=== PATIENT | female | born 1980 | race Caucasian/White ===

== ENCOUNTER → 2019-12-07 09:13 | Outpatient (CLI) | payer OTHER, SELFPAY ==
--- NOTE | ~2019-12-07 | MMUS_ITS ---
EXAMINATION: MM diag dhruv implant BI w angely, US breast LT limited HISTORY: Lump in left axillary tail area TECHNIQUE: ML, MLO and cc 3-D tomosynthesis implant displaced images and implant views of both breast s were performed and synthetic 2-D images were generated. CAD analysis was submitted and interpreted. High resolution targeted left axillary tail and axillary breast ultrasound was performed. COMPARISON: None BREAST PARENCHYMAL COMPOSITION: The breasts are heterogeneously dense, which may obscure small masses . FINDINGS: MAMMOGRAPHIC FINDINGS: No suspicious mass or architectural distortion, malignant calcification, skin thickening or retractio n is detected. ULTRASOUND: There is a 1.0 x 0.7 x 0.7 mm benign-appearing lymph node at the area of clinical complaint in the 1: 00 area 9 cm from the nipple. No suspicious mass or shadowing is evident. IMPRESSION: 1. No mammographic evidence of malignancy 2. Routine mammographic screening is recommended. BI-RADS Category 2: Benign finding(s). Reviewed, dictated and finalized at location A. 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 No mammographic evidence of malignancy 2. Routine mammographic screening is recommended. BI-RADS Category 2: Benign finding(s).
== END ==
PROVIDERS: Visit Provider Advanced Practice Midwife
DX: N63.32 Unspecified lump in axillary tail of the left breast (principal)
CPT/HCPCS: 76642; 77062; 77066; G0279

== ENCOUNTER → 2021-05-21 12:10 | Outpatient (CLI) | payer OTHER, SELFPAY ==
--- NOTE | ~2021-05-21 | MM_ITS ---
EXAMINATION: MM scrn dhruv implant BI w angely HISTORY: Screening mammogram TECHNIQUE: Craniocaudal and mediolateral oblique 3-D tomosynthesis images with implant displacement a nd synthetic 2-D images were generated. Craniocaudal and mediolateral oblique views of the breasts wi thout implant displacement were obtained using full field digital mammography. CAD analysis was submi tted and interpreted. COMPARISON: 12/07/2019 BREAST PARENCHYMAL COMPOSITION: The breasts are heterogeneously dense, which may obscure small masses . FINDINGS: RIGHT BREAST: There is focal asymmetry in the posterior third of the slightly outer breast on the imp lant displaced views 6.5 cm from the nipple. LEFT BREAST: An asymmetry is present in the middle third of the slightly upper breast on the mediolat eral oblique implant displaced view 5.5 cm from the nipple. IMPRESSION: 1. Bilateral breast findings as described above. 2. Additional mammographic views and possible breast ultrasound are recommended. BI-RADS Category 0: Incomplete: Needs additional imaging evaluation. Reviewed, dictated and finalized at location A. IMPRESSION: 1. Bilateral breast findings as described above. 2. Additional mammographic views and possible breast ultrasound are recommended . BI-RADS Category 0: Incomplete: Needs additional imaging evaluation.
== END ==
PROVIDERS: PCP Family Medicine; Visit Provider Nurse Practitioner Obstetrics & Gynecology
DX: Z12.31 Encounter for screening mammogram for malignant neoplasm of breast (principal); R92.8 Other abnormal and inconclusive findings on diagnostic imaging of breast
CPT/HCPCS: 77063; 77067

== ENCOUNTER 2021-06-15 11:52 | Outpatient (CLI) | payer OTHER, SELFPAY ==
--- NOTE | ~2021-06-15 | MMUS_ITS ---
EXAMINATION: MM diag dhruv implant BI w angely, US breast BI limited HISTORY: Follow-up bilateral breast asymmetries TECHNIQUE: Additional 3-D tomosynthesis images of the breasts were performed and synthetic 2-D images were generated. CAD analysis was submitted and interpreted. High resolution complete bilateral [address] ultrasound was performed. COMPARISON: Comparison to multiple prior studies sequentially, with oldest reviewed study dated 12/07. BREAST PARENCHYMAL COMPOSITION: Breast composed of scattered areas of fibroglandular density. FINDINGS: MAMMOGRAPHIC FINDINGS: There are no suspicious masses, calcifications or architectural distortion in either breast to sugges t malignancy. Bilateral breast asymmetries compress with spot views, compatible with superimposed fib roglandular tissue. ULTRASOUND: Limited bilateral breast ultrasound: Normal heterogeneous echotexture without focal solid or cystic m ass. IMPRESSION: 1. No evidence for malignancy in either breast. 2. Routine yearly screening mammogram and regular clinical breast examination are recommended. BI-RADS Category 1: Negative Reviewed, dictated and finalized at location A. IMPRESSION: 1. No evidence for malignancy in either breast. 2. Routine yearly screening mammogram and regular clinical breast examination a re recommended. BI-RADS Category 1: Negative
== END 2021-06-15 11:53 | disposition home or self-care (01) ==
PROVIDERS: PCP Family Medicine; Visit Provider Advanced Practice Midwife
DX: R92.8 Other abnormal and inconclusive findings on diagnostic imaging of breast (principal)
CPT/HCPCS: 76642; 77062; 77066; G0279

== ENCOUNTER → 2021-10-17 12:03 | Outpatient (CLI) | payer OTHER, SELFPAY ==
--- NOTE | ~2021-10-17 | XR_ITS ---
EXAMINATION: XR sinus min 3V EXAM DATE: 10/17/2021 12:37 INDICATION: hard fixed mass left orbital rim, symptoms for weeks. TECHNIQUE: Sinus projections including submentovertex, lateral, Kaur, towns and frontal projection s. There is no prior study for comparison. FINDINGS: Orbital rims are unremarkable. Sinuses appear well-aerated. IMPRESSION: Unremarkable XR sinus min 3V exam. Reviewed, dictated and finalized at location A. GER
== END ==
PROVIDERS: PCP Nurse Practitioner Obstetrics & Gynecology; Visit Provider Nurse Practitioner
DX: R22.0 Localized swelling, mass and lump, head (principal)
CPT/HCPCS: 70220

== ENCOUNTER → 2021-12-25 09:51 | Outpatient (CLI) | payer OTHER, SELFPAY ==
--- NOTE | ~2021-12-25 | CT_ITS ---
EXAMINATION: CT sinus wo/w con DATE: 12/25/2021 10:30 INDICATION: Localized swelling, mass and lump TECHNIQUE: Computed tomography (CT) of the paranasal sinuses was performed without contrast. Iterativ e reconstruction technique was employed. Exam dose: 572.40 mGy-cm total exam DLP. COMPARISON: None FINDINGS: There is leftward deviation of the nasal septum. There is soft tissue swelling of the nasal turbinates, greater on the left. The ostiomeatal units are patent. 7.4 mm x 9 mm mucous retention cyst at the anterolateral roof of the left sphenoid sinus. The paranas al sinuses are otherwise normally developed and aerated. There is opacification of a small minority of posterior left mastoid air cells. The mastoid air cells are otherwise normally developed and aerated bilaterally. Middle and inner ear apparatus appear normal bilaterally. IMPRESSION: Leftward deviation of nasal septum 7.4 x 9 mm mucus retention cyst of left sphenoid sinus Opacification of a small number of posterior left mastoid air cells, not likely clinically significan t Reviewed, dictated and finalized at Location A. Reviewed, dictated and finalized at location B. TH INFORMATION MANAGEMENT DIRECTOR IMPRESSION: Leftward deviation of nasal septum 7.4 x 9 mm mucus retention cyst of left sphenoid sinus Opacification of a small number of posterior left mastoid air cells, not likely clinically significant
== END ==
PROVIDERS: PCP Family Medicine; Visit Provider Nurse Practitioner
DX: J34.2 Deviated nasal septum (principal)
CPT/HCPCS: 70488; Q9967

== ENCOUNTER → 2022-01-02 13:07 | Outpatient (CLI) | payer OTHER, SELFPAY ==
--- NOTE | ~2022-01-02 | XR_ITS ---
EXAMINATION: XR hip BI wo pelvis EXAM DATE: 01/02/2022 13:45 INDICATION: Bilateral hip pain . TECHNIQUE: Each hip imaged independently (separate right and also left hip) 'frog leg' and frontal p rojections for interpretation. There is no prior study for comparison. FINDINGS: No radiographic evidence of hip avascular necrosis. Symmetric hip joints bilaterally, spa areli are maintained. There are no acute fractures or dislocations identified. There is no subcutaneou s gas. The soft tissue is unremarkable. There are no radiopaque foreign bodies. IMPRESSION: 1. Unremarkable hip exam. Reviewed, dictated and finalized at location G. N CLEANER IMPRESSION: 1. Unremarkable hip exam.
== END ==
PROVIDERS: PCP Family Medicine; Visit Provider Advanced Practice Midwife
DX: M25.559 Pain in unspecified hip (principal)
CPT/HCPCS: 73521

== ENCOUNTER → 2022-08-06 13:26 | Outpatient (CLI) | payer OTHER, SELFPAY ==
--- NOTE | ~2022-08-06 | MM_ITS ---
EXAMINATION: MM scrn dhruv implant BI w angely HISTORY: Screening mammogram TECHNIQUE: Craniocaudal and mediolateral oblique 3-D tomosynthesis images with implant displacement a nd synthetic 2-D images were generated. Craniocaudal and mediolateral oblique views of the breasts wi thout implant displacement were obtained using full field digital mammography. CAD analysis was submi tted and interpreted. COMPARISON: 06/15/2021 bilateral diagnostic implant mammogram and bilateral Limited breast ultrasound 05/21/2021 bilateral implant screening mammogram 12/07/2019 bilateral diagnostic implant mammogram and limited left breast ultrasound BREAST PARENCHYMAL COMPOSITION: The breasts are heterogeneously dense, which may obscure small masses . FINDINGS: Status post bilateral augmentation mammoplasty. Stable mild fibroglandular asymmetry. There is no evidence of suspicious mass, calcification, or architectural distortion to suggest malignancy in either breast. There has been no suspicious interval change. IMPRESSION: 1. No mammographic evidence of malignancy. 2. Recommend routine screening mammography in one year. BI-RADS Category 1: Negative Reviewed, dictated and finalized at location A.
== END ==
PROVIDERS: PCP Family Medicine; Visit Provider Nurse Practitioner Obstetrics & Gynecology
DX: Z12.31 Encounter for screening mammogram for malignant neoplasm of breast (principal)
CPT/HCPCS: 77063; 77067

== ENCOUNTER → 2023-08-07 07:22 | Outpatient (CLI) | payer OTHER, SELFPAY ==
--- NOTE | ~2023-08-07 | MM_ITS ---
EXAMINATION: MM scrn dhruv implant BI w angely HISTORY: Screening mammogram TECHNIQUE: Craniocaudal and mediolateral oblique 3-D tomosynthesis images with implant displacement a nd synthetic 2-D images were generated. Craniocaudal and mediolateral oblique views of the breasts wi thout implant displacement were obtained using full field digital mammography. CAD analysis was submi tted and interpreted. COMPARISON: 08/06/2022 bilateral implant screening mammogram 06/15/2021 bilateral diagnostic mammography and bilateral Limited breast ultrasound examination, report ed negative 05/21/2021 bilateral implant screening mammogram BREAST PARENCHYMAL COMPOSITION: FINDINGS: There is no evidence of suspicious mass, calcification, or architectural distortion to sugg est malignancy in either breast. There has been no suspicious interval change. IMPRESSION: 1. No mammographic evidence of malignancy. 2. Recommend routine screening mammography in one year. BI-RADS Category 1: Negative Reviewed, dictated and finalized at location A.
== END ==
PROVIDERS: PCP Family Medicine; Visit Provider Nurse Practitioner Obstetrics & Gynecology
DX: Z12.31 Encounter for screening mammogram for malignant neoplasm of breast (principal)
CPT/HCPCS: 77063; 77067

== ENCOUNTER 2024-09-09 10:13 | Outpatient (CLI) | payer OTHER, SELFPAY ==
--- NOTE | ~2024-09-09 | MM_ITS ---
EXAMINATION: MM scrn dhruv implant BI w angely HISTORY: Screening mammogram TECHNIQUE: Craniocaudal and mediolateral oblique 3-D tomosynthesis images with implant displacement a nd synthetic 2-D images were generated. Craniocaudal and mediolateral oblique views of the breasts wi thout implant displacement were obtained using full field digital mammography. CAD analysis was submi tted and interpreted. COMPARISON: 08/07/2023, 08/06/2022, 05/21/2021 BREAST PARENCHYMAL COMPOSITION: The breasts are heterogeneously dense, which may obscure small masses . FINDINGS: There is no evidence of suspicious mass, calcification, or architectural distortion to sugg est malignancy in either breast. There has been no suspicious interval change. IMPRESSION: No mammographic evidence of malignancy. Recommend routine screening mammography in one year. BI-RADS Category 1: Negative Reviewed, dictated and finalized at [facility].
== END 2024-09-09 10:14 | disposition home or self-care (01) ==
PROVIDERS: PCP Family Medicine; Visit Provider Obstetrics & Gynecology
DX: Z12.31 Encounter for screening mammogram for malignant neoplasm of breast (principal)
CPT/HCPCS: 77063; 77067

== ENCOUNTER 2025-09-15 10:00 | Outpatient (CLI) | payer OTHER, SELFPAY ==
--- NOTE | ~2025-09-15 | MM_ITS ---
EXAMINATION: MM scrn dhruv implant BI w angely INDICATION: Asymptomatic, referred for screening mammogram COMPARISON: 09/09/2024 through 05/21/2021 TECHNIQUE: Digital Breast Tomosynthesis CC, MLO, and implant displaced CC and MLO views of Both breasts were obtained with computer-aided detection to assist in interpretation of the study. FINDINGS: There are scattered areas of fibroglandular density. Bilateral breast Retropectoral Silicone implants in place appears intact. No focal dominant mass, architectural distortion, or suspicious microcalcifications are identified. There are no features to suggest malignancy. IMPRESSION: 1. No evidence of malignancy in the breasts. 2. Both breasts Retropectoral Silicone implants appears intact. Recommend continued screening mammography BI-RADS 1, NEGATIVE Reviewed, dictated and finalized at location B. 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
== END 2025-09-15 10:01 | disposition home or self-care (01) ==
LOC: MICIMG 10:01
PROVIDERS: PCP Family Medicine; Visit Provider Obstetrics & Gynecology
DX: Z12.31 Encounter for screening mammogram for malignant neoplasm of breast (principal); Z98.82 Breast implant status
CPT/HCPCS: 77063; 77067